=== PATIENT | male | born 1995 | race Caucasian/White ===

== ENCOUNTER → 2018-07-30 12:42 | Outpatient (CLI) | payer OTHER, SELFPAY ==
--- NOTE | 2018-07-30 12:52 | US_ITS ---
US thyroid HISTORY: Thyromegaly ITS.REASON: THYROMEGLY ORDERING PHYSICIAN: DADA Navarro PATIENT AGE: 22 years Comparison: 05/12/2013 FINDINGS: The isthmus is upper normal at 4 mm. There is an isoechoic nodule within the right aspect of the isthmus measuring 5 x 4 mm The right lobe is 4.3 x 1.2 x 1.8 cm. No discrete nodule on the right. The left lobe is 4.1 x 1.1 x 1.8 cm with no obvious nodule. IMPRESSION: 1. Thyroid gland upper limits of normal in size. 2. 5 x 4 mm hypoechoic nodule in the right aspect of the isthmus. Not readily demonstrated previously. Consider 6 month follow-up to confirm short-term stability
== END ==
PROVIDERS: PCP Physician Assistant; Visit Provider Physician Assistant
DX: E01.0 Iodine-deficiency related diffuse (endemic) goiter (principal)
CPT/HCPCS: 76536

== ENCOUNTER 2020-05-21 02:36 | Emergency (ER) | payer BC, OTHER, SELFPAY ==
[2020-05-21 02:37] VITALS: BMI 34.9
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
--- NOTE | 2020-05-21 02:39 | ECG_ITS ---
APPROVED REPORT Exam: Resting ECG HR:71 bpm ECG Measurements Heart Rate 71 AXES CO 166 P 48 QRSd 82 QRS 21 QT 372 T 25 QTc 404 <Conclusion> Normal sinus rhythm with sinus arrhythmia Normal ECG Electronically signed by : Gopi Jones, 05/21/2020 09:01:20
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
[2020-05-21 02:43] VITALS: BP 128/75; PULSE 73; RESP 18; TEMP 36.7; O2SAT 96; BMI 34.9
[2020-05-21 02:56] LABS: Basophils # 0.1 K/mm3 (0-0.2); Basophils % 0.6 % (0.1-2.0); Eosinophils # 0.3 K/mm3 (0.0-0.4); Eosinophils % 3.2 % (0.1-12.0); Hematocrit 46.6 % (42.0-52.0); Hemoglobin 16.1 g/dL (14.1-18.0); Lymphocytes # 2.6 K/mm3 (0.7-4.5); Lymphocytes % 30.5 % (10-50); Mean Corpuscular HGB Conc 34.5 g/dL (31.8-35.4); Mean Corpuscular Volume 92.9 fl (80-94); Mean Platelet Volume 7.8 fl (7.4-10.4); Monocytes # 0.7 K/mm3 (0.1-1.0); Monocytes % 8.4 % (1.7-9.3); Neutrophils # 4.9 K/mm3 (1.8-7.8); Neutrophils % 57.3 % (37.0-80.0); Platelet Count 204 K/mm3 (142-424); Red Blood Count 5.02 M/mm3 (4.60-6.20); Red Cell Distribution Width 12.5 % (11.5-17.5); White Blood Count 8.6 K/mm3 (4.8-10.8)
[2020-05-21 03:06] LABS: Alanine Aminotransferase 24 U/L (12-78); Albumin Level 4.5 g/dl (3.5-5.0); Alkaline Phosphatase 60 U/L (38-126); Anion Gap 14.9 mEq/L (5-15); Aspartate Amino Transferase 29 U/L (17-59); Bilirubin,Direct 0.1 mg/dl (0.0-0.4); Bilirubin,Indirect 0.6 mg/dL (0.0-0.9); Bilirubin,Total 0.7 mg/dl (0.2-1.3); Bilirubin,Unconjugated 0.6 mg/dL (0.0-1.1); Blood Urea Nitrogen 16 mg/dl (9-20); Calcium 9.2 mg/dl (8.4-10.2); Carbon Dioxide 24 mmol/L (22.0-30.0); Chloride 106 mmol/L (98-107); Creatinine Clearance Estimated 208 mL/min (50-200); Estimated Glomerular Filt Rate 118 ml/min (>60); GFR (African American) 143 ML/MIN (>60); Glucose 120 mg/dl (74-100); Potassium 3.9 mmoL/L (3.5-5.1); Sodium 141 mmol/L (136-145); Total Protein,Serum 7.2 g/dl (6.3-8.2)
[2020-05-21 03:08] LABS: Ethyl Alcohol < 10 mg/dl (0-10)
[2020-05-21 03:35] LABS: Troponin I < 0.01 ng/ml (0.00-0.034)
[2020-05-21 03:37] VITALS: BP 108/55; PULSE 67; O2SAT 97
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
[2020-05-21 04:17] VITALS: BP 105/44; PULSE 62; O2SAT 96
[2020-05-21 04:30] VITALS: BP 108/52; PULSE 64; RESP 14; TEMP 36.7; O2SAT 99
== END 2020-05-21 04:32 | disposition home or self-care (01) ==
PROVIDERS: Emergency Provider Emergency Medicine; PCP Family Medicine
DX: S20.219A Contusion of unspecified front wall of thorax, initial encounter (principal); V49.3XXA Car occupant (driver) (passenger) injured in unspecified nontraffic accident, initial encounter; Y92.488 Other paved roadways as the place of occurrence of the external cause
CPT/HCPCS: 70450; 71045; 71275; 72125; 72128; 72131; 72170; 80048; 80076; 84484; 85025; 93005; 96365; 96375; 99284; Q9967

== ENCOUNTER → 2020-07-05 14:00 | Outpatient (CLI) | payer BC, OTHER, SELFPAY ==
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
== END ==
PROVIDERS: PCP Family Medicine; Visit Provider Nurse Practitioner Family
DX: R29.898 Other symptoms and signs involving the musculoskeletal system (principal)
CPT/HCPCS: 73030

== ENCOUNTER → 2020-07-27 15:52 | Outpatient (CLI) | payer BC, SELFPAY ==
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
[2020-07-27 17:21] LABS: Basophils % 0.5 % (0.1-2.0); Eosinophils # 0.2 K/mm3 (0.0-0.4); Eosinophils % 2.6 % (0.1-12.0); Hematocrit 49.1 % (42.0-52.0); Hemoglobin 16.1 g/dL (14.1-18.0); Lymphocytes # 1.7 K/mm3 (0.7-4.5); Lymphocytes % 27.6 % (10-50); Mean Corpuscular HGB Conc 32.8 g/dL (31.8-35.4); Mean Corpuscular Volume 91.6 fl (80-94); Mean Platelet Volume 7.6 fl (7.4-10.4); Monocytes # 0.5 K/mm3 (0.1-1.0); Monocytes % 7.5 % (1.7-9.3); Neutrophils # 3.8 K/mm3 (1.8-7.8); Neutrophils % 61.8 % (37.0-80.0); Platelet Count 227 K/mm3 (142-424); Red Blood Count 5.36 M/mm3 (4.60-6.20); Red Cell Distribution Width 12.3 % (11.5-17.5); White Blood Count 6.1 K/mm3 (4.8-10.8)
[2020-07-29 10:50] LABS: Covid-19 Nasal PCR Sendout Lex Not Detected
== END ==
PROVIDERS: PCP Family Medicine; Visit Provider Physician Assistant
DX: Z03.818 Encounter for observation for suspected exposure to other biological agents ruled out (principal)
CPT/HCPCS: 36415; 71045; 85025; 87275; 87276; U0004

== ENCOUNTER → 2021-05-01 10:24 | Outpatient (CLI) | payer BC, SELFPAY ==
[2021-05-01 10:42] LABS: Adenovirus,PCR Not Detected (NotDetected); Bordetella Pertussis Not Detected (NotDetected); Chlamydophila Pneumoniae, PCR Not Detected (NotDetected); Coronavirus 19, PCR Not Detected (NotDetected); Coronavirus 229E Not Detected (NotDetected); Coronavirus NL63 Not Detected (NotDetected); Coronavirus OC43 Not Detected (NotDetected); Coronovirus HKU1,PCR Not Detected (NotDetected); Human Metapneumovirus Not Detected (NotDetected); Influenza A, PCR Not Detected (NotDetected); Influenza AH1, 2009 Not Detected (NotDetected); Influenza AH1, PCR Not Detected (NotDetected); Influenza AH3,PCR Not Detected (NotDetected); Influenza B, PCR Not Detected (NotDetected); Mycoplasma Pneumoniae, PCR Not Detected (NotDetected); Parainfluenza 1, PCR Not Detected (NotDetected); Parainfluenza 2, PCR Not Detected (NotDetected); Parainfluenza 3, PCR Not Detected (NotDetected); Parainfluenza 4, PCR Not Detected (NotDetected); Respiratory Syncytial Virus Not Detected (NotDetected); Rhinovirus/Enterovirus Not Detected (NotDetected)
[2021-05-01 10:57] LABS: Strep Scrn Group A (Rapid) Negative (Negative)
[2021-05-01 11:02] LABS: Basophils % 0.3 % (0.1-2.0); Eosinophils # 0.1 K/mm3 (0.0-0.4); Eosinophils % 1.4 % (0.1-12.0); Hematocrit 46.2 % (42.0-52.0); Hemoglobin 15.7 g/dL (14.1-18.0); Lymphocytes # 1.9 K/mm3 (0.7-4.5); Mean Corpuscular HGB Conc 33.9 g/dL (31.8-35.4); Mean Corpuscular Hemoglobin 31.5 pg (27.0-31.2); Mean Corpuscular Volume 92.7 fl (80-94); Mean Platelet Volume 7.5 fl (7.4-10.4); Monocytes # 0.4 K/mm3 (0.1-1.0); Monocytes % 5.5 % (1.7-9.3); Neutrophils # 5.1 K/mm3 (1.8-7.8); Neutrophils % 67.7 % (37.0-80.0); Platelet Count 255 K/mm3 (142-424); Red Blood Count 4.98 M/mm3 (4.60-6.20); Red Cell Distribution Width 12.8 % (11.5-17.5); White Blood Count 7.5 K/mm3 (4.8-10.8)
== END ==
PROVIDERS: PCP Family Medicine; Visit Provider Nurse Practitioner
DX: Z20.822 Contact with and (suspected) exposure to COVID-19 (principal); J02.9 Acute pharyngitis, unspecified
CPT/HCPCS: 36415; 85025; 87430; 87581; 87633; 87798

== ENCOUNTER 2021-07-25 12:05 | Emergency (ER) | payer BC, SELFPAY ==
[2021-07-25 12:06] VITALS: BP 144/65; PULSE 88; RESP 16; TEMP 37.7; O2SAT 99; BMI 41.0
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
[2021-07-25 12:30] VITALS: BP 144/65; PULSE 90; O2SAT 96
[2021-07-25 12:39] LABS: Basophils % 0.7 % (0.1-2.0); Eosinophils # 0.1 K/mm3 (0.0-0.4); Eosinophils % 1.5 % (0.1-12.0); Hematocrit 42.7 % (42.0-52.0); Hemoglobin 15.4 g/dL (14.1-18.0); Lymphocytes # 0.9 K/mm3 (0.7-4.5); Lymphocytes % 24.5 % (10-50); Mean Corpuscular HGB Conc 36.1 g/dL (31.8-35.4); Mean Corpuscular Hemoglobin 31.1 pg (27.0-31.2); Mean Corpuscular Volume 86.4 fl (80-94); Monocytes # 0.3 K/mm3 (0.1-1.0); Monocytes % 8.4 % (1.7-9.3); Neutrophils # 2.5 K/mm3 (1.8-7.8); Platelet Count 175 K/mm3 (142-424); Red Blood Count 4.94 M/mm3 (4.60-6.20); Red Cell Distribution Width 12.8 % (11.5-17.5); White Blood Count 3.8 K/mm3 (4.8-10.8)
[2021-07-25 12:54] LABS: Alanine Aminotransferase 34 U/L (12-78); Albumin Level 4.4 g/dl (3.5-5.0); Albumin/Globulin Ratio 1.5 (1.1-1.8); Alkaline Phosphatase 59 U/L (38-126); Anion Gap 9.6 mEq/L (5-15); Aspartate Amino Transferase 42 U/L (17-59); Blood Urea Nitrogen 7 mg/dl (9-20); Calcium 8.6 mg/dl (8.4-10.2); Carbon Dioxide 29 mmol/L (22.0-30.0); Chloride 101 mmol/L (98-107); Creatinine Clearance Estimated 215 mL/min (50-200); Estimated Glomerular Filt Rate 102 ml/min (>60); GFR (African American) 123 ML/MIN (>60); Globulin 2.9 g/dL (1.3-3.2); Glucose 99 mg/dl (74-100); Potassium 3.6 mmoL/L (3.5-5.1); Sodium 136 mmol/L (136-145); Total Protein,Serum 7.3 g/dl (6.3-8.2)
[2021-07-25 13:00] VITALS: BP 127/75; PULSE 81; O2SAT 94
--- NOTE | 2021-07-25 13:09 | PC.NURSE ---
Pt resting. No new needs at this time
--- NOTE | 2021-07-25 13:27 | HMH.EDGENADL ---
ED Disposition Clinical Impression: Vomiting Disposition: Home, Self-Care Condition on Discharge: Fair Instructions: DI for Nausea -- Adult, DI for Nausea -- Child, DI for Diarrhea and Traveler's Diarrhea -- Adult, DI for Diarrhea and Traveler's Diarrhea -- Child Referrals: Jared Pérez MD [Primary Care Provider] - - Critical Care Critical Care Time: No Attestation: On 07/25/21, the high probability of a clinically significant, sudden or life threatening deterioration of the following system(s) required my full and direct attention, intervention and personal management. The time I documented below is in addition to time spent performing reported procedures but includes the following listed in this critical care notation. Medical Decision Making - Medical Records Medical records reviewed: Yes: I reviewed the patient's medical records. - Garth Inquiry Pt receiving controlled substance: No Garth was queried for this patient: No Vital Signs: 07/25/21 12:06 07/25/21 12:30 07/25/21 13:00 Temperature 99.9 F H Temperature Source Oral Pulse Rate 90 81 Pulse Rate [Right] 88 Respiratory Rate 16 Blood Pressure 144/65 H 127/75 Blood Pressure [Right Arm] 144/65 H Blood Pressure Mean [Right Arm] 91 Blood Pressure Source [Right Arm] Automatic Cuff Blood Pressure Position [Right Arm] Sitting 02 Sat by Pulse Oximetry 99 96 94 L Oxygen Delivery Method Room Air - Lab Data Lab Results 07/25/21 12:25: WBC 3.8 L, RBC 4.94, Hgb 15.4, Hct 42.7, MCV 86.4, MCH 31.1, MCHC 36.1 H, RDW 12.8, Plt Count 175, MPV 8.0, Neut % (Auto) 65.0, Lymph % (Auto) 24.5, [place] % (Auto) 8.4, Eos % (Auto) 1.5, Baso % (Auto) 0.7, Neut # (Auto) 2.5, Lymph # (Auto) 0.9, [place] # (Auto) 0.3, Eos # (Auto) 0.1, Baso # (Auto) 0.0 07/25/21 12:25: Sodium 136, Potassium 3.6, Chloride 101, Carbon Dioxide 29, Anion Gap 9.6, BUN 7 L, Creatinine 0.90, Estimated Creat Clear 215, Estimated GFR 102, Est GFR ( Amer) 123, Glucose 99, Calcium 8.6, Total Bilirubin 1.0, AST 42, ALT 34, Alkaline Phosphatase 59, Total Protein 7.3, Albumin 4.4, Globulin 2.9, Albumin/Globulin Ratio 1.5 Result diagrams: 07/25/21 12:25 07/25/21 12:25 Orders (Tests/Meds): ORDERS Category Date Time Status XR chest portable Stat Exams 07/25/21 12:22 Taken Medical Decision Narrative: Patient is a 25 old male with no past medical history presenting to the ED for vomiting blood. Patient is awake, alert, not in acute distress. Patient is medically stable, afebrile. Patient's physical exam is unremarkable, patient has a soft nondistended nontender abdomen. Includes but is not limited to trauma from vomiting ,gastritis, peptic ulcer disease. This a CBC, CMP is performed. Chest x-ray is performed. Patient's lab work is unremarkable, hemoglobin stable. At this point patient is stable for discharge. Patient can with primary care physician as needed. General Adult HPI - General Chief complaint: Nausea/Vomiting/Diarrhea Stated complaint: covid positive, vomiting blood Time Seen by Provider: 07/25/21 13:28 Mode of Arrival: Ambulatory Limitations: No Limitations Description of Symptoms (Recalled from ER Triage Doc. by RN): P:t advises he tested positive for covid on 07/17 and had been doing fairly well with symptoms that included congestion, productive cough, fever, body aches and chills. PT advises this morning he started coughing really hard and vomited and noticed it had some dark red blood tinge in it. - History of Present Illness HPI narrative: Patient is a 25-year-old male with no past medical history presenting to the ED for vomiting blood. Patient states that he is Covid positive and has been sick for approximately a week and a half. Patient states that his symptoms are still persistent patient intermittently gets fevers, myalgias, cough. Patient states that his cough is worsening to the point that he is having to vomit. Patient irby
[2021-07-25 13:57] VITALS: BP 134/87; PULSE 94; RESP 18; TEMP 37.7; O2SAT 94
== END 2021-07-25 13:57 | disposition home or self-care (01) ==
PROVIDERS: Emergency Provider Emergency Medicine; PCP Family Medicine
DX: U07.1 COVID-19 (principal); R05.8 Other specified cough; F17.210 Nicotine dependence, cigarettes, uncomplicated; Z88.0 Allergy status to penicillin
CPT/HCPCS: 71045; 80053; 85025; 99283

== ENCOUNTER → 2021-07-27 14:52 | Outpatient (CLI) | payer BC, SELFPAY ==
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
[2021-07-27 16:32] LABS: Basophils % 0.4 % (0.1-2.0); Eosinophils # 0.1 K/mm3 (0.0-0.4); Eosinophils % 1.8 % (0.1-12.0); Hematocrit 44.4 % (42.0-52.0); Hemoglobin 15.7 g/dL (14.1-18.0); Lymphocytes # 1.8 K/mm3 (0.7-4.5); Lymphocytes % 36.1 % (10-50); Mean Corpuscular HGB Conc 35.4 g/dL (31.8-35.4); Mean Corpuscular Hemoglobin 31.4 pg (27.0-31.2); Mean Corpuscular Volume 88.6 fl (80-94); Mean Platelet Volume 7.8 fl (7.4-10.4); Monocytes # 0.4 K/mm3 (0.1-1.0); Monocytes % 7.9 % (1.7-9.3); Neutrophils # 2.7 K/mm3 (1.8-7.8); Neutrophils % 53.7 % (37.0-80.0); Platelet Count 215 K/mm3 (142-424); Red Blood Count 5.01 M/mm3 (4.60-6.20); Red Cell Distribution Width 12.2 % (11.5-17.5); White Blood Count 5.1 K/mm3 (4.8-10.8)
== END ==
PROVIDERS: PCP Family Medicine; Visit Provider Nurse Practitioner
DX: Z20.822 Contact with and (suspected) exposure to COVID-19 (principal)
CPT/HCPCS: 36415; 71045; 85025

== ENCOUNTER 2022-09-28 12:43 | Emergency (ER) | payer BC, SELFPAY ==
[2022-09-28 14:00] VITALS: BP 128/80; PULSE 78; RESP 21; TEMP 36.8; O2SAT 97; BMI 39.5
--- NOTE | 2022-09-28 14:03 | EXP.UTC ---
Discharge Plan Disposition Patient Disposition: Home, Self-Care Condition: Good Prescriptions Prescriptions: New azithromycin [Zithromax] 250 mg tablet 250 mg PO UD DOSE PK Qty: 6 0RF Rx Instructions: Take two (2) tablets today, then one (1) tablet days #2 thru #5 benzonatate [benzonatate] 100 mg capsule 100 mg PO TIDP PRN (Reason: Cough) Qty: 30 0RF methylprednisolone 4 mg Tablets,Dose Pack 4 mg PO DIRECTED Qty: 21 0RF No Action clindamycin HCl 300 mg capsule 300 mg PO TID Label Comments: TAKE 1 CAPSULE BY MOUTH THREE TIMES DAILY Referrals Follow up/Referrals: Jared Pérez MD [Primary Care Provider] - See instructions Activity Restrictions/Add. Instructions Additional Instructions/Restrictions: Drink plenty of fluids. Take tylenol or ibuprofen for pain or fever. Take the medications as directed. Follow up with your regular doctor. GO TO THE ER FOR ANY WORSENING SYMPTOMS Clinical Impressions Clinical Impression: Sinusitis Instructions Patient Instructions: Sinusitis, DI for Sinusitis Discharge ED Provider: Shayan Prajapati [facility] General Stated complaint: head congestion Time Seen by Provider: 09/28/22 14:03 History of Present Illness Provider Complaint: He states that for the past 1 week he has had sinus congestion, sore throat, chills, and malaise. Related Data Home Medications Medication Instructions Recorded Confirmed clindamycin HCl 300 mg capsule 300 mg PO TID TOOTH INFECTION 09/28/22 09/28/22 Previous Rx's Medication Instructions Recorded azithromycin 250 mg tablet 250 mg PO UD DOSE PK #6 tabs 09/28/22 (Zithromax) benzonatate 100 mg capsule 100 mg PO TIDP PRN Cough #30 caps 09/28/22 methylprednisolone 4 mg tablets in 4 mg PO DIRECTED #21 tabs 09/28/22 a dose pack Allergies Allergy/AdvReac Type Severity Reaction Status Date / Time codeine [CODEINE] Allergy Mild ITCHING Verified 07/25/21 12:37 Penicillins [PENICILLINS] Allergy Unknown Verified 07/25/21 12:37 [facility] Disclaimer: The information contained in this section may have been updated after the patient was seen, as this information can be updated by other users. Medical History Asthma Surgical History History of appendectomy Social History Smoking Status: Current every day smoker tobacco type: cigarettes packs per day: 1 alcohol intake: never current occupational status: employed Travel in the last 8 weeks: None household members: family housing: house ROS Obtained: Yes All systems reviewed & no additional complaints except as documented Constitutional Constitutional: Reports poor appetite Eyes Eyes: Reports system reviewed and no additional complaints, except as documented ENT Ears, Nose, Mouth, and Throat: Reports as per HPI Cardiovascular Cardiovascular: Reports system reviewed and no additional complaints, except as documented and Denies chest pain Respiratory Respiratory: Denies shortness of breath, Denies chest congestion, Reports cough, Denies stridor and Denies wheezing Gastrointestinal Gastrointestingal: Reports system reviewed and no additional complaints, except as documented; Denies abdominal pain, diarrhea or vomiting Musculoskeletal Musculoskeletal: Reports system reviewed and no additional complaints, except as documented and Denies arthralgias Integumentary/Breasts Skin/Breast: Reports system reviewed and no additional complaints, except as documented and Denies rash Neurologic Neurologic: Denies paresthesias Allergic/Immunologic Allergic/Immunologic: Denies wheezing Physical Exam General General appearance: alert and in no apparent distress Eye Eye exam: Present normal appearance, PERRL and EOMI ENT ENT exam: Present mucous membranes moist and normal e
[2022-09-28 14:39] VITALS: BP 128/80; PULSE 78; RESP 21; TEMP 36.8; O2SAT 97
== END 2022-09-28 14:44 | disposition home or self-care (01) ==
PROVIDERS: Emergency Provider Nurse Practitioner Family; PCP Family Medicine
DX: J32.9 Chronic sinusitis, unspecified (principal)
CPT/HCPCS: 99212; 99213; G0463

== ENCOUNTER 2023-04-10 17:32 | Emergency (ER) | payer BC, SELFPAY ==
[2023-04-10 18:10] VITALS: BP 148/80; PULSE 85; RESP 18; TEMP 36.8; O2SAT 98; BMI 27.3
[2023-04-10 18:28] VITALS: BP 148/80; PULSE 85; RESP 18; TEMP 36.8; O2SAT 98
--- NOTE | 2023-04-10 18:33 | EXP.UTC ---
Discharge Plan Disposition Patient Disposition: Home, Self-Care Condition: Good Prescriptions Prescriptions: New methylprednisolone [Medrol ([facility])] 4 mg tablets,dose pack See Rx Instructions .Route .COMPLEX 6 Days Qty: 21 0RF Rx Instructions: taper pack; Referrals Follow up/Referrals: Jared Pérez MD [Primary Care Provider] - See instructions Activity Restrictions/Add. Instructions Additional Instructions/Restrictions: *Ibuprofen julieta 6 hours with meal as needed for pain/inflammation *Remember you had a Toradol shot in the clinic today, which is similar to Motrin *Not additional anti-inflammatory like motrin, aleve, advil with the above amount of ibuprofen. You can still take Tylenol every 4 hours as needed if you need something else for pain *Ice 20 minutes every 2 hours for the first 48 hours after the initial injury followed by moist heat every 20 minutes 3-4 times a day to affected area Start oral steriods tomorrow *Keep this area active, no movement leads to more stiffness, However take it easy and avoid heavy lifting pushing or pulling *Follow up with you family doctor if no improvement for further treatment Clinical Impressions Clinical Impression: Low back pain Qualifiers: Chronicity: unspecified Back pain laterality: right Sciatica presence: with sciatica Sciatica laterality: sciatica of right side Qualified Code(s): M54.41 - Lumbago with sciatica, right side Instructions Patient Instructions: Sciatica, DI for Sciatica, DI for Back Pain With Sciatica Discharge ED Provider: Amy Munoz [facility] General Stated complaint: back and leg pain Mode of Arrival: Ambulatory Source of Information: Patient Limitations: No Limitations Time Seen by Provider: 04/10/23 18:34 Description of Symptoms (Recalled from Triage Doc. by RN): PATIENT C/O LOWER BACK PAIN THAT RADIATES DOWN LEG HEENT Symptoms (Recalled from RN notes): No Resp Symptoms (Recalled from RN notes): No Skin Symptoms (Recalled from RN notes): No MS Symptoms (Recalled from RN notes): Yes Functional Status (Recalled from RN notes): WNL History of Present Illness Provider Complaint: Patient state that he has been having pain in his right lower back area that radiates into his right hip and upper leg States that he has had sciatica before and feels like it did then Denies known injury Related Data Previous Rx's Medication Instructions Recorded methylprednisolone 4 mg tablets in See Rx Instructions .Route 04/10/23 a dose pack (Medrol ([facility])) .COMPLEX 6 days #21 tabs Allergies Allergy/AdvReac Type Severity Reaction Status Date / Time codeine [CODEINE] Allergy Mild ITCHING Verified 07/25/21 12:37 Penicillins [PENICILLINS] Allergy Unknown Verified 07/25/21 12:37 Worker's Comp Is this a Worker's Comp case?: No [facility] Disclaimer: The information contained in this section may have been updated after the patient was seen, as this information can be updated by other users. Medical History Asthma Surgical History History of appendectomy Social History Smoking Status: Current every day smoker tobacco type: cigarettes packs per day: 1 alcohol intake: never current occupational status: employed Travel in the last 8 weeks: None household members: family housing: house ROS Obtained: Yes All systems reviewed & no additional complaints except as documented and Yes Systems reviewed as appropriate & no additional complaints except as documented Constitutional Constitutional: Reports system reviewed and no additional complaints, except as documented and Reports as per HPI ENT Ears, Nose, Mouth, and Throat: Reports system reviewed and no additional complaints, except as documented and Reports as per HPI Cardiovascular Cardiovascular: Reports system revie
== END 2023-04-10 19:15 | disposition home or self-care (01) ==
PROVIDERS: Emergency Provider Nurse Practitioner; PCP Family Medicine
DX: M54.41 Lumbago with sciatica, right side (principal); F17.210 Nicotine dependence, cigarettes, uncomplicated; J45.909 Unspecified asthma, uncomplicated
CPT/HCPCS: 96372; 99212; 99214; G0463

== ENCOUNTER 2023-05-18 13:48 | Emergency (ER) | payer BC, SELFPAY ==
[2023-05-18 14:05] VITALS: BP 118/88; PULSE 94; RESP 21; TEMP 36.6; O2SAT 95; BMI 39.4
--- NOTE | 2023-05-18 14:34 | EXP.UTC ---
Discharge Plan Disposition Patient Disposition: Home, Self-Care Condition: Good Prescriptions Prescriptions: New azithromycin [Zithromax Z-[facility]] 250 mg tablet See Rx Instructions .ROUTE .COMPLEX 5 Days Qty: 6 0RF Rx Instructions: For 250 mg dose pack: take 500 mg today (day 1), then 250 mg for 4 days (days 2-5) methylprednisolone [Medrol ([facility])] 4 mg tablets,dose pack See Rx Instructions .Route .COMPLEX 6 Days Qty: 21 0RF Rx Instructions: taper pack; tprgikvsrntxyag-nwkgoacoo-VO [Bromfed DM] 2-30-10 mg/5 mL Syrup 10 ml PO Q4H PRN (Reason: Cough) Qty: 240 0RF ondansetron 4 mg tablet,disintegrating 4 mg PO Q8H PRN (Reason: nausea and vomiting) Qty: 10 0RF guaifenesin [Mucinex] 600 mg tablet extended release 12hr 600 - 1,200 mg PO BID PRN (Reason: cough) Qty: 20 0RF albuterol sulfate [Proventil HFA] 90 mcg/actuation HFA aerosol inhaler 1 - 2 inh inhalation Q6H PRN (Reason: shortness of breath or wheezing) Qty: 8.5 0RF No Action methylprednisolone [Medrol ([facility])] 4 mg tablets,dose pack See Rx Instructions .Route .COMPLEX 6 Days Qty: 21 0RF Rx Instructions: taper pack; Referrals Follow up/Referrals: Jared Pérez MD [Primary Care Provider] - See instructions Activity Restrictions/Add. Instructions Additional Instructions/Restrictions: Start antibiotic today. Be sure to complete entire prescription even if feeling better Monitor temp. Tylenol every 4 hours as needed and / or ibuprofen every 6 hours as needed ( As long as your primary care physician has told you that it ok to take both. For fever/aches/pains ER if no less than 101 despite Tylenol or Motrin Humidifier/vaporizer or hot steamy shower Inhaler every 4-6 hours as needed like we discussed. If unsure how to use it, ask pharmacist to demonstrate how. Should help open airways and improve cough, wheezing, and shortness of breath Mucinex during the day for your cough and cough suppressant only at night. Be sure to drink lots of water. * Take at night Bromfed as it may cause drowsiness.and help you rest Know how it effects you before driving, caring for small child, Not other antihistamines/allergy medications while taking bromfed *Start steroid today. Helps with inflammation therefore, cough and wheezing. Follow directions on the package. Reviewed side effects. Patient reports taking them before. Follow up IMMEDIATELY for new or worsening of symptoms OR no noticeable improvement over the next 48-72 hours. 911 immediately for any life threatening symptoms such as chest pain or difficulty breathing Clinical Impressions Clinical Impression: Bronchitis Sinusitis Qualifiers: Sinusitis location: unspecified location Chronicity: unspecified Qualified Code(s): J32.9 - Chronic sinusitis, unspecified Instructions Patient Instructions: DI for Sinusitis, Acute Bronchitis Discharge ED Provider: Amy Munoz [facility] General Stated complaint: chest congestion, vomiting Mode of Arrival: Ambulatory Source of Information: Patient Limitations: No Limitations Time Seen by Provider: 05/18/23 14:34 Description of Symptoms (Recalled from Triage Doc. by RN): PATIENT C/O CONGESTION, COUGH AND VOMITING X 3 DAYS HEENT Symptoms (Recalled from RN notes): Yes Resp Symptoms (Recalled from RN notes): Yes Skin Symptoms (Recalled from RN notes): No MS Symptoms (Recalled from RN notes): No Functional Status (Recalled from RN notes): WNL History of Present Illness Provider Complaint: Patient states that he has been having sinus congestion and pressure for about a week but for the last 3-4 days feels like it is draining in the back of his throat making him cough at times until he vomits States that today the sinus congestion was worse so he came in to see if he could get something to help Related Data Previous Rx's Medication Instructions Recorded methylprednisolone 4 mg tablets in S
[2023-05-18 15:00] VITALS: BP 118/88; PULSE 94; RESP 21; TEMP 36.6; O2SAT 95
== END 2023-05-18 15:02 | disposition home or self-care (01) ==
PROVIDERS: Emergency Provider Nurse Practitioner; PCP Family Medicine
DX: J32.9 Chronic sinusitis, unspecified; R11.10 Vomiting, unspecified; F17.210 Nicotine dependence, cigarettes, uncomplicated; J45.901 Unspecified asthma with (acute) exacerbation
CPT/HCPCS: 99212; 99214; G0463

== ENCOUNTER 2024-03-25 16:08 | Emergency (ER) | payer BC, SELFPAY ==
--- NOTE | 2024-03-25 16:19 | ECG_ITS ---
APPROVED REPORT Exam: Resting ECG HR:76 bpm ECG Measurements Heart Rate 76 AXES OH 180 P 67 QRSd 110 QRS 67 QT 366 T 24 QTc 397 Conclusion SINUS RHYTHM NORMAL ECG Electronically signed by : VIANNEY MESSINA, 03/25/2024 23:32:03
[2024-03-25 16:25] VITALS: BP 125/84; PULSE 78; RESP 18; TEMP 36.9; O2SAT 97; BMI 38.3
[2024-03-25 16:30] VITALS: BP 126/64; PULSE 87; O2SAT 95
--- NOTE | 2024-03-25 16:33 | XR_ITS ---
PROCEDURE INFORMATION: Exam: XR Chest Exam date and time: 03/25/2024 4:36 PM Age: 28 years old Clinical indication: Cough; Additional info: XR TECHNIQUE: Imaging protocol: Radiologic exam of the chest. Views: 2 views. COMPARISON: CR XR CHEST PORTABLE 07/27/2021 3:33 PM FINDINGS: Lungs: No evidence of acute pulmonary disease or infiltrates Pleural spaces: No large effusion or pneumothorax. Heart/Mediastinum: Stable cardiac and mediastinal contours. Bones/joints: No evidence of acute osseous abnormalities within the visualized portions of the thoracic spine and ribs. Osseous structures appear appropriate for patient age. IMPRESSION: No dense parenchymal consolidation, pleural effusion, or pneumothorax.
--- NOTE | 2024-03-25 17:44 | PC.NURSE ---
Rounded on pt. No needs or complaints voiced at this time. Call light within reach.
[2024-03-25 18:00] VITALS: BP 129/73; PULSE 78; RESP 18; TEMP 36.9; O2SAT 94
--- NOTE | 2024-03-25 19:06 | HMH.EDGENADL ---
Discharge Plan Disposition Patient Disposition: Home, Self-Care Condition: Good Prescriptions Prescriptions: New iblqvuiheewirsd-okuhdzdsz-TJ [Bromfed DM] 2-30-10 mg/5 mL syrup 5 ml PO Q6H PRN (Reason: cold symptoms) Qty: 118 0RF No Action methylprednisolone [Medrol ([facility])] 4 mg tablets,dose pack See Rx Instructions .Route .COMPLEX 6 Days Qty: 21 0RF Rx Instructions: taper pack; azithromycin [Zithromax Z-[facility]] 250 mg tablet See Rx Instructions .ROUTE .COMPLEX 5 Days Qty: 6 0RF Rx Instructions: For 250 mg dose pack: take 500 mg today (day 1), then 250 mg for 4 days (days 2-5) methylprednisolone [Medrol ([facility])] 4 mg tablets,dose pack See Rx Instructions .Route .COMPLEX 6 Days Qty: 21 0RF Rx Instructions: taper pack; hefkbpaehwiasny-tvphpglrm-DT [Bromfed DM] 2-30-10 mg/5 mL Syrup 10 ml PO Q4H PRN (Reason: Cough) Qty: 240 0RF ondansetron 4 mg tablet,disintegrating 4 mg PO Q8H PRN (Reason: nausea and vomiting) Qty: 10 0RF guaifenesin [Mucinex] 600 mg tablet extended release 12hr 600 - 1,200 mg PO BID PRN (Reason: cough) Qty: 20 0RF albuterol sulfate [Proventil HFA] 90 mcg/actuation HFA aerosol inhaler 1 - 2 inh inhalation Q6H PRN (Reason: shortness of breath or wheezing) Qty: 8.5 0RF Referrals Follow up/Referrals: Jared Pérez MD [Primary Care Provider] - See instructions Activity Restrictions/Add. Instructions Additional Instructions/Restrictions: You were evaluated in the emergency department today. Please brass pickler your prescription and use it as needed for cough. Make sure that you stay hydrated. Take Tylenol and ibuprofen at home as needed for pain and/or fever. Symptoms should resolve in about a week, but cough may linger for 4 to 6 weeks. Follow-up closely with your primary care provider. Return to the emergency department for new or worsening symptoms. Clinical Impressions Clinical Impression: Viral pneumonia Instructions Patient Instructions: DI for Cough -- Adult Print Language Print Language: Uzbek Discharge ED Provider: Kathya Salinas General Adult HPI General Chief complaint: Upper Respiratory Infection Stated complaint: cough, exp- pneu Time Seen by Provider: 03/25/24 16:24 Mode of Arrival: Ambulatory Source of Information: Patient Limitations: No Limitations Description of Symptoms (Recalled from ER Triage Doc. by RN): Pt ambulatory to ED with cc of congestion and chest tightness x 2 days. Pt states his son has pneumonia. History of Present Illness HPI narrative: This patient is a 28-year-old male who denies significant past medical history presenting to the emergency department for evaluation with concern for 2 days of cough and chest congestion. He notes that his son at home has pneumonia. He states he wanted to be evaluated to see if he has pneumonia as well. No other concerns noted. Related Data Previous Rx's ?Medication ?Instructions ?Recorded methylprednisolone 4 mg tablets in See Rx Instructions .Route 04/10/23 a dose pack (Medrol ([facility])) .COMPLEX 6 days #21 tabs albuterol sulfate 90 mcg/actuation 1 - 2 inh inhalation Q6H PRN 05/18/23 aerosol inhaler (Proventil HFA) shortness of breath or wheezing #8.5 grams azithromycin 250 mg tablet See Rx Instructions PO .COMPLEX 5 05/18/23 (Zithromax Z-[facility]) days #6 tabs yudkyidbaprhshn-aujzjzwofnvhkuy-MR 10 ml PO Q4H PRN Cough #240 mL 05/18/23 2 mg-30 mg-10 mg/5 mL oral syrup (Bromfed DM) guaifenesin 600 mg tablet, 600 - 1,200 mg (1 - 2 x 600 mg) PO 05/18/23 extended release 12 hr (Mucinex) BID PRN cough #20 tabs methylprednisolone 4 mg tablets in See Rx Instructions .Route 05/18/23 a dose pack (Medrol ([facility])) .COMPLEX 6 days #21 tabs ondansetron 4 mg disintegrating 4 mg PO Q8H PRN nausea and 05/18/23 tablet vomiting #10 tabs wpqtszalwgmffry-opkfrkgjbmvnhhj-EA 5 ml PO Q6H PRN cold symptoms #118 03/25/24 2 mg-30 mg-10 mg/5 mL oral syrup mL (Bromfed DM) Allergies Allergy/AdvReac Type Severity Reaction Status Date / Time codeine [CODEINE] Allergy Mild ITCHING Verified 07/25/21 12:37 Penicillins [PENICILLINS] Allergy Unknown Verified 07/25/21 12:37 [facility] Disclaimer: The information contained in this section may have been updated after the patient was seen, as this information can be updated by other users. Medical History Asthma Surgical History History of appendectomy Social History Smoking Status: Current every day smoker tobacco type: cigarettes packs per day: 1 alcohol intake: never current occupational status: employed Travel in the last 8 weeks: None household members: family housing: house ROS Obtained: Yes All systems reviewed & no additional complaints except as documented Physical Exam General General appearance: alert and in no apparent distress Head Head exam: atraumatic and normocephalic Eye Eye exam: Present normal appearance, PERRL and EOMI ENT ENT exam: Present normal exam, normal oropharynx, mucous membranes moist and normal external ear exam Neck Neck exam: Present normal inspection, full ROM and trachea midline; Absent tenderness Chest Chest inspection: Present normal inspection and symmetric chest wall rise; Absent tenderness Respiratory Respiratory exam: Present normal lung sounds bilaterally; Absent respiratory distress, wheezes, stridor or accessory muscle use Cardiovascular Cardiovascular exam: Present regular rate and normal rhythm Abdominal Exam Abdominal exam: Present soft; Absent distention, tenderness or guarding Extremities Exam Extremities exam: Present normal inspection, full ROM and normal capillary refill; Absent tenderness or edema Back Exam Back exam: Present normal inspection and full ROM; Absent tenderness Neurological Exam Neurological exam: Present alert, oriented X3, CN II-XII intact and normal gait; Absent motor sensory deficit Psychiatric Psychiatric exam: Present normal affect and normal mood Skin Skin exam: Present warm and dry Medical Decision Making Medical Records Medical records reviewed: Yes I reviewed the patient's medical records. Garth Inquiry Pt receiving controlled substance: No Vital Signs: 03/25/24 16:25 03/25/24 16:30 03/25/24 18:00 Temperature 98.4 F 98.4 F Temperature Source Oral Oral Pulse Rate 87 78 Pulse Rate [Left Radial] 78 Respiratory Rate 18 18 Blood Pressure 126/64 129/73 Blood Pressure [Right Arm] 125/84 Blood Pressure Mean [Right Arm] 97 Blood Pressure Source Automatic Cuff Blood Pressure Source [Right Arm] Automatic Cuff Blood Pressure Position Sitting Blood Pressure Position [Right Arm] Sitting 02 Sat by Pulse Oximetry 97 95 Oxygen Delivery Method Room Air Room Air Room Air Lab Data Lab results reviewed: Yes I reviewed the patient's lab results. Orders (Tests/Meds): ORDERS Category Date Time Status CXR 2 view (NOT portable) [XR chest 2V] Stat Exams 03/25/24 16:33 Completed ECG Data Tracing #1: I reviewed this ECG and interpreted as documented below: Normal sinus rhythm with a ventricular rate of [address] changes concerning for ischemia. Normal axis and intervals. ECG initial impression date: 03/25/24 ECG initial impression time: 16:21 Medical Decision Narrative: In summary, this patient is a 28-year-old male presenting to the Emergency Department for evaluation of cough and chest congestion for 2 days. Differential diagnoses considered include but are not limited to viral syndrome, pneumonia, bronchitis, respiratory failure. Ruling out the most morbid conditions drove assessment. On exam, the patient is very well-appearing. Lungs are clear to auscultation bilaterally, and cardiac exam is normal. Vitals are normal on cardiac telemetry. EKG obtained is normal. Workup included view chest x-ray. Patient declines need for viral swab.. I independently interpreted x-ray prior to the radiologist read and noted no acute focal consolidation, pneumothorax, pulmonary edema. Please see their read for final interpretation. At this time, I feel patient likely has viral upper respiratory infection given the short duration of symptoms as well as lack of focal consolidation on x-ray. I advised that I recommended discharge home with supportive management. He was given prescription for Bromfed. He was given strict return precautions and instructions for close outpatient follow-up. He was discharged in stable condition. Critical Care Critical Care Time Critical Care Time: No
== END 2024-03-25 18:02 | disposition home or self-care (01) ==
PROVIDERS: Emergency Provider Emergency Medicine; PCP Family Medicine
DX: J18.8 Other pneumonia, unspecified organism (principal); R05.9 Cough, unspecified; B34.9 Viral infection, unspecified; F17.210 Nicotine dependence, cigarettes, uncomplicated; J45.909 Unspecified asthma, uncomplicated
CPT/HCPCS: 71046; 93005; 99283

== ENCOUNTER 2024-05-11 15:27 | Emergency (ER) | payer BC, SELFPAY ==
[2024-05-11 15:47] VITALS: BP 137/78; PULSE 76; RESP 16; TEMP 37.2; O2SAT 97; BMI 39.5
--- NOTE | 2024-05-11 15:50 | ED_ITS ---
Discharge Plan Disposition Patient Disposition: Home, Self-Care Condition: Good Prescriptions Prescriptions: New ondansetron 4 mg tablet,disintegrating 4 mg PO Q8H PRN (Reason: nausea and vomiting) Qty: 10 0RF No Action methylprednisolone [Medrol ([facility])] 4 mg tablets,dose pack See Rx Instructions .Route .COMPLEX 6 Days Qty: 21 0RF Rx Instructions: taper pack; bmqywwhjwwxvols-dnbhpcgjg-NV [Bromfed DM] 2-30-10 mg/5 mL syrup 5 ml PO Q6H PRN (Reason: cold symptoms) Qty: 118 0RF azithromycin [Zithromax Z-Wesley] 250 mg tablet See Rx Instructions .ROUTE .COMPLEX 5 Days Qty: 6 0RF Rx Instructions: For 250 mg dose pack: take 500 mg today (day 1), then 250 mg for 4 days (days 2-5) methylprednisolone [Medrol ([facility])] 4 mg tablets,dose pack See Rx Instructions .Route .COMPLEX 6 Days Qty: 21 0RF Rx Instructions: taper pack; cxcjvbcdqclulvz-yqjlulfiy-JS [Bromfed DM] 2-30-10 mg/5 mL Syrup 10 ml PO Q4H PRN (Reason: Cough) Qty: 240 0RF ondansetron 4 mg tablet,disintegrating 4 mg PO Q8H PRN (Reason: nausea and vomiting) Qty: 10 0RF guaifenesin [Mucinex] 600 mg tablet extended release 12hr 600 - 1,200 mg PO BID PRN (Reason: cough) Qty: 20 0RF albuterol sulfate [Proventil HFA] 90 mcg/actuation HFA aerosol inhaler 1 - 2 inh inhalation Q6H PRN (Reason: shortness of breath or wheezing) Qty: 8.5 0RF Referrals Follow up/Referrals: Jared Pérez MD [Primary Care Provider] - See instructions Activity Restrictions/Add. Instructions Additional Instructions/Restrictions: *Monitor Temp, Over the counter Motrin or Tylenol as directed/as needed Tylenol every 4 hours and Motrin every 6 hours (as long as your family doctor has told you that you can take it) for fever or pain. and straight to ER if unable to lower temp less than 101.0 after medication given *Warm salt water gargles may help to soothe the throat *Throat Lozenges? *Warm fluids like tea with honey may help to soothe the throat? *Sleep elevated *Humidifier/Vaporizer *Flonase 2 sprays in each nostril daily but be aware that it may take 2-3 days before you notice improvement *Bromfed may cause drowsiness. Know how it effects you (your child) before dr diaz, caring for small child, or sending your child to school. Not other antihistamines/allergy medications while taking bromfed Your throat swab was sent for culture. Those results are typically sent to your primary care. Be sure to follow up in 2-3 days with your family doctor/primary care physician if no improvement so they can review those result and treat if necessary. If you don?t have a primary care doctor, I recommend you get one but in the mean time, you will have to return to a walk in clinic Follow up IMMEDIATELY for new or worsening symptoms or no Noticeable improvement over the next 48-72 hours. 911 for difficulty breathing or swallowing You were tested for today for Upper Respiratory Panel with COVID19 your test result should be back in the next 24 hours, you may check for your results on the [facility] Med Access Health Portal Clinical Impressions Clinical Impression: Viral syndrome Stand Alone Forms Stand Alone Forms: Work/School Release Instructions Patient Instructions: Nausea and Vomiting-Adult, DI for Viral Syndrome Print Language Print Language: Albanian Discharge ED Provider: Amy Munoz [facility] [place] General Stated complaint: Fever,cough,ALEJANDRO,vomiting Mode of Arrival: Ambulatory Source of Information: Patient Limitations: No Limitations Time Seen by Provider: 05/11/24 15:50 Description of Symptoms (Recalled from Triage Doc. by RN): Reports sore thraot, fever, vomiting, headache and body aches. HEENT Symptoms (Recalled from RN notes): Yes Resp Symptoms (Recalled from RN notes): No Skin Symptoms (Recalled from RN notes): No MS Symptoms (Recalled from RN notes): No Functional Status (Recalled from RN notes): wnl History of Present Illness Provider Complaint: Patient states he hasnt been feeling well the last couple of days States he has been having sore throat, fever, body aches, headache and runny nose States today he was still not feeling any better so he came in to get checked Related Data Previous Rx's ?Medication ?Instructions ?Recorded methylprednisolone 4 mg tablets in See Rx Instructions .Route 04/10/23 a dose pack (Medrol ([facility])) .COMPLEX 6 days #21 tabs albuterol sulfate 90 mcg/actuation 1 - 2 inh inhalation Q6H PRN 05/18/23 aerosol inhaler (Proventil HFA) shortness of breath or wheezing #8.5 grams azithromycin 250 mg tablet See Rx Instructions PO .COMPLEX 5 05/18/23 (Zithromax Z-Wesley) days #6 tabs etmswiisfkudzwh-uwzlsxascbqxhlc-KK 10 ml PO Q4H PRN Cough #240 mL 05/18/23 2 mg-30 mg-10 mg/5 mL oral syrup (Bromfed DM) guaifenesin 600 mg tablet, 600 - 1,200 mg (1 - 2 x 600 mg) PO 05/18/23 extended release 12 hr (Mucinex) BID PRN cough #20 tabs methylprednisolone 4 mg tablets in See Rx Instructions .Route 05/18/23 a dose pack (Medrol ([facility])) .COMPLEX 6 days #21 tabs ondansetron 4 mg disintegrating 4 mg PO Q8H PRN nausea and 05/18/23 tablet vomiting #10 tabs slrlazqaphjgeqb-mmlfkhrmatuimhl-MV 5 ml PO Q6H PRN cold symptoms #118 03/25/24 2 mg-30 mg-10 mg/5 mL oral syrup mL (Bromfed DM) ondansetron 4 mg disintegrating 4 mg PO Q8H PRN nausea and 05/11/24 tablet vomiting #10 tabs Allergies Allergy/AdvReac Type Severity Reaction Status Date / Time codeine [CODEINE] Allergy Mild ITCHING Verified 07/25/21 12:37 Penicillins [PENICILLINS] Allergy Unknown Verified 07/25/21 12:37 Worker's Comp Is this a Worker's Comp case?: No [facility] Disclaimer: The information contained in this section may have been updated after the patient was seen, as this information can be updated by other users. Medical History Asthma Surgical History History of appendectomy Social History Smoking Status: Current every day smoker tobacco type: cigarettes packs per day: 1 alcohol intake: never current occupational status: employed Travel in the last 8 weeks: None household members: family housing: house ROS Obtained: Yes All systems reviewed & no additional complaints except as documented and Yes Systems reviewed as appropriate & no additional complaints except as documented Constitutional Constitutional: Reports system reviewed and no additional complaints, except as documented, Reports as per HPI, Reports body ache, Reports chills, Reports fever(s) and Reports headache(s) ENT Ears, Nose, Mouth, and Throat: Reports system reviewed and no additional comp laints, except as documented, Reports as per HPI, Reports headache(s), Reports nasal congestion and Reports sore throat Cardiovascular Cardiovascular: Reports system reviewed and no additional complaints, except as documented and Reports as per HPI Respiratory Respiratory: Reports system reviewed and no additional complaints, except as documented, Reports as per HPI and Reports cough Gastrointestinal Gastrointestingal: Reports system reviewed and no additional complaints, except as documented, as per HPI, nausea and vomiting; Denies abdominal pain Neurologic Neurologic: Reports headache(s) Physical Exam General General appearance: alert and in no apparent distress ENT ENT exam: Present mucous membranes moist Expanded ENT Exam Nose exam: Absent sinus tenderness Throat exam: Present tonsillar erythema Respiratory Respiratory exam: Present normal lung sounds bilaterally; Absent respiratory distress or wheezes Cardiovascular Cardiovascular exam: Present regular rate, normal rhythm and normal heart sounds Abdominal Exam Abdominal exam: Present soft and normal bowel sounds; Absent distention or tenderness Neurological Exam Neurological exam: Present alert, oriented X3 and normal gait Medical Decision Making Medical Records Screening: Per USPSTF and CDC recommendations, given the prevalence of disease in our region, it is our hospital?s policy to screen for HIV and viral Hepatitis for all patients aged 18 and over and those with ongoing risk factors. Garth Inquiry Pt receiving controlled substance: No Garth was queried for this patient: No Vital Signs: 05/11/24 15:47 Temperature 98.9 F Temperature Source Oral Pulse Rate [Radial] 76 Respiratory Rate 16 Blood Pressure [Right Arm] 137/78 Blood Pressure Mean [Right Arm] 97 Blood Pressure Source [Right Arm] Automatic Cuff Blood Pressure Position [Right Arm] Sitting 02 Sat by Pulse Oximetry 97 Oxygen Delivery Method Room Air Lab Data Lab results reviewed: Yes I reviewed the patient's lab results.
[2024-05-11 16:17] VITALS: BP 137/78; PULSE 76; RESP 16; TEMP 37.2; O2SAT 97
[2024-05-11 16:21] LABS: Coronavirus 19, PCR Not Detected (NotDetected); Influenza A, PCR Not Detected (NotDetected); Influenza B, PCR Not Detected (NotDetected)
== END 2024-05-11 16:18 | disposition home or self-care (01) ==
PROVIDERS: Emergency Provider Nurse Practitioner; PCP Family Medicine
DX: R51.9 Headache, unspecified (principal); R50.9 Fever, unspecified; R07.0 Pain in throat; R11.2 Nausea with vomiting, unspecified; B34.9 Viral infection, unspecified
CPT/HCPCS: 87636; 87880; 99212; 99214; G0463

== ENCOUNTER 2024-08-15 11:52 | Emergency (ER) | payer BC, SELFPAY ==
[2024-08-15 13:29] VITALS: BP 131/70; PULSE 94; RESP 18; TEMP 36.8; O2SAT 98; BMI 40.4
[2024-08-15 13:39] LABS: UTC Influenza A Antigen Positive (Negative); UTC Influenza B Antigen Negative (Negative)
--- NOTE | 2024-08-15 13:54 | EXP.UTC ---
Discharge Plan Disposition Patient Disposition: Home, Self-Care Condition: Good Prescriptions Prescriptions: New oseltamivir [Tamiflu] 75 mg capsule 75 mg PO BID 5 Days Qty: 10 0RF clotrimazole 1 % cream 1 applic topical BID 28 Days Qty: 15 2RF ibuprofen [IBU] 800 mg tablet 800 mg PO Q8HP PRN (Reason: Moderate Pain) Qty: 30 0RF wnbbtwmpikeflen-ttmafsdww-AX [Bromfed DM] 2-30-10 mg/5 mL Syrup 5 ml PO Q6H PRN (Reason: Cough) Qty: 240 0RF Referrals Follow up/Referrals: Jared Pérez MD [Primary Care Provider] - See instructions Activity Restrictions/Add. Instructions Additional Instructions/Restrictions: Drink plenty of fluids. Take tylenol or ibuprofen for pain or fever. Take the medications as directed. Follow up with your regular doctor. GO TO THE ER FOR ANY WORSENING SYMPTOMS Use the topical medication as directed. I put refills on it just in case this comes back. Clinical Impressions Clinical Impression: Influenza A, Facial ringworm Instructions Patient Instructions: DI for Influenza -- Adult, DI for Ringworm, Oseltamivir Print Language Print Language: Estonian Discharge ED Provider: Shayan Prajapati [facility] General Stated complaint: cough Mode of Arrival: Ambulatory Source of Information: Patient Time Seen by Provider: 08/15/24 13:45 Description of Symptoms (Recalled from Triage Doc. by RN): COUGH, FEVER, EXP TO FLU, RING WORM ON FORHEAD HEENT Symptoms (Recalled from RN notes): No Resp Symptoms (Recalled from RN notes): Yes Skin Symptoms (Recalled from RN notes): No MS Symptoms (Recalled from RN notes): No Functional Status (Recalled from RN notes): WNL Related Data Previous Rx's ?Medication ?Instructions ?Recorded mgfztdddcwozbsn-ppzzqujptojmibo-AT 5 ml PO Q6H PRN Cough #240 mL 08/15/24 2 mg-30 mg-10 mg/5 mL oral syrup (Bromfed DM) clotrimazole 1 % topical cream 1 applic topical BID 4 weeks #15 08/15/24 grams ibuprofen 800 mg tablet (IBU) 800 mg PO Q8HP PRN Moderate Pain 08/15/24 #30 tabs oseltamivir 75 mg capsule (Tamiflu) 75 mg PO BID 5 days #10 caps 08/15/24 Allergies Allergy/AdvReac Type Severity Reaction Status Date / Time codeine (CODEINE) Allergy Mild ITCHING Verified 07/25/21 12:37 Penicillins (PENICILLINS) Allergy Unknown Verified 07/25/21 12:37 Worker's Comp Is this a Worker's Comp case?: No [facility] Disclaimer: The information contained in this section may have been updated after the patient was seen, as this information can be updated by other users. Medical History Asthma Surgical History History of appendectomy Social History Smoking Status: Current every day smoker tobacco type: cigarettes packs per day: 1 alcohol intake: never current occupational status: employed Travel in the last 8 weeks: None household members: family housing: house Have you lived/traveled outside [place] in past 30 days?: No Contact w/someone who lives/traveled outside [place] past 30 days?: No Exposure to someone with infectious disease in past 14 days?: Yes Do you have a fever (greater than 100.4 F or 38 C)?: No Have you tested positive for COVID-19: No Exposed to someone with COVID-19 in past 14 days?: No Do you have a sore throat?: No Do you have a cough?: Yes Do you have any weakness?: No Do you have any diarrhea?: No Are you experiencing any unusual bleeding?: No Do you have any muscle aches/pain?: No Do you have any abdominal pain?: No Are you experiencing loss of taste or smell?: No ROS Obtained: Yes All systems reviewed & no additional complaints except as documented Constitutional Constitutional: Reports chills and Reports fever(s) Eyes Eyes: Denies eye discharge ENT Ears, Nose, Mouth, and Throat: Reports as per HPI Cardiovascular Cardiovascular: Denies chest pain Respiratory Respiratory: Denies chest congestion and Reports cough Gastrointestinal Gastrointestingal: Reports nausea; Denies abdominal pain, constipation, cramping, diarrhea or vomiting Musculoskeletal Musculoskeletal: Denies arthralgias Integumentary/Breasts Skin/Breast: Denies rash Neurologic Neurologic: Denies paresthesias Physical Exam General General appearance: alert and in no apparent distress Head Head exam: atraumatic, normocephalic and normal inspection Eye Eye exam: Present normal appearance, PERRL and EOMI ENT ENT exam: Present mucous membranes moist and normal external ear exam Expanded ENT Exam TM/Canal exam: Bilateral TM: erythema and bulging Nose exam: Absent sinus tenderness Mouth exam: Present normal external inspection; Absent drooling Teeth exam: Present normal inspection Throat exam: Present tonsillar erythema, tonsillomegaly and tonsillar exudate Neck Neck exam: Present normal inspection, full ROM and trachea midline; Absent tenderness, meningismus or lymphadenopathy Chest Chest inspection: Present normal inspection and symmetric chest wall rise; Absent tenderness Respiratory Respiratory exam: Present normal lung sounds bilaterally; Absent respiratory distress, wheezes, stridor or accessory muscle use Cardiovascular Cardiovascular exam: Present regular rate and normal rhythm; Absent systolic murmur or diastolic murmur Abdominal Exam Abdominal exam: Present soft and normal bowel sounds; Absent distention, tenderness, guarding, rebound or rigidity Extremities Exam Extremities exam: Present normal inspection and normal capillary refill; Absent calf tenderness Back Exam Back exam: Present normal inspection and full ROM; Absent tenderness, CVA tenderness (R) or CVA tenderness (L) Neurological Exam Neurological exam: Present alert, oriented X3 and CN II-XII intact Psychiatric Psychiatric exam: Present normal affect and normal mood Skin Skin exam: Present warm, dry, intact and normal color Medical Decision Making Medical Records Medical records reviewed: No I reviewed the patient's medical records. Screening: Per USPSTF and CDC recommendations, given the prevalence of disease in our region, it is our hospital?s policy to screen for HIV and viral Hepatitis for all patients aged 18 and over and those with ongoing risk factors. Garth Inquiry Pt receiving controlled substance: No Vital Signs: 08/15/24 13:29 Temperature 98.2 F Temperature Source Oral Pulse Rate [Left Brachial] 94 H Respiratory Rate 18 Blood Pressure [Left Arm] 131/70 Blood Pressure Mean [Left Arm] 90 02 Sat by Pulse Oximetry 98 Lab Data Lab Results 08/15/24 13:35: Influenza Type A Ag Positive A, Influenza Type B Ag Negative
[2024-08-15 14:11] VITALS: BP 131/70; PULSE 94; RESP 18; TEMP 36.8
== END 2024-08-15 14:24 | disposition home or self-care (01) ==
PROVIDERS: Emergency Provider Nurse Practitioner Family; PCP Family Medicine
DX: J10.1 Influenza due to other identified influenza virus with other respiratory manifestations (principal); B35.8 Other dermatophytoses; R50.9 Fever, unspecified; R05.9 Cough, unspecified; Z20.828 Contact with and (suspected) exposure to other viral communicable diseases
CPT/HCPCS: 87804; 99212; G0381

== ENCOUNTER 2024-09-26 15:05 | Emergency (ER) | payer BC, SELFPAY ==
--- NOTE | 2024-09-26 15:59 | EXP.UTC ---
Discharge Plan Disposition Patient Disposition: Still a Patient Condition: Fair Referrals Follow up/Referrals: Jared Pérez MD [Primary Care Provider] - See instructions Clinical Impressions Clinical Impression: Left testicular pain Print Language Print Language: Yi Discharge ED Provider: Kathya Salinas [facility] [place] General Stated complaint: tender and swollen genitals Time Seen by Provider: 09/26/24 15:59 History of Present Illness Provider Complaint: He states that since this morning he has had left testicular pain. He states that pain has varied in intensity. He denies any injury. He denies any history of similar issues. He denies n/v. He denies back pain. Related Data Allergies Allergy/AdvReac Type Severity Reaction Status Date / Time codeine (CODEINE) Allergy Mild ITCHING Verified 07/25/21 12:37 Penicillins (PENICILLINS) Allergy Unknown Verified 07/25/21 12:37 [facility] Disclaimer: The information contained in this section may have been updated after the patient was seen, as this information can be updated by other users. Medical History Asthma Surgical History History of appendectomy Social History Smoking Status: Current every day smoker tobacco type: cigarettes packs per day: 1 alcohol intake: never current occupational status: employed Travel in the last 8 weeks: None household members: family housing: house Have you lived/traveled outside US in past 30 days?: No Contact w/someone who lives/traveled outside [place] past 30 days?: No Exposure to someone with infectious disease in past 14 days?: No Do you have a fever (greater than 100.4 F or 38 C)?: No Have you tested positive for COVID-19: No Exposed to someone with COVID-19 in past 14 days?: No Do you have a sore throat?: No Do you have a cough?: No Do you have any weakness?: No Do you have any diarrhea?: No Are you experiencing any unusual bleeding?: No Do you have any muscle aches/pain?: No Do you have any abdominal pain?: No Are you experiencing loss of taste or smell?: No ROS Obtained: Yes All systems reviewed & no additional complaints except as documented Constitutional Constitutional: Denies chills and Denies fever(s) Eyes Eyes: Denies eye discharge ENT Ears, Nose, Mouth, and Throat: Denies dizziness, Denies otalgia and Denies sore throat Cardiovascular Cardiovascular: Denies chest pain Respiratory Respiratory: Denies shortness of breath, Denies chest congestion, Denies cough, Denies stridor and Denies wheezing Gastrointestinal Gastrointestingal: Denies nausea or vomiting Genitourinary Male Genitourinary: Reports as per HPI, Denies difficulty urinating, Denies hematuria, Denies scrotal swelling, Denies testicular mass and Reports testicular pain Musculoskeletal Musculoskeletal: Reports system reviewed and no additional complaints, except as documented and Denies arthralgias Integumentary/Breasts Skin/Breast: Denies rash Neurologic Neurologic: Denies dizziness and Denies paresthesias Allergic/Immunologic Allergic/Immunologic: Denies wheezing Physical Exam General General appearance: alert and in no apparent distress Head Head exam: atraumatic, normocephalic and normal inspection Eye Eye exam: Present normal appearance, PERRL and EOMI ENT ENT exam: Present normal exam, normal oropharynx, mucous membranes moist, TM's normal bilaterally and normal external ear exam Neck Neck exam: Present normal inspection, full ROM and trachea midline; Absent meningismus or lymphadenopathy Chest Chest inspection: Present normal inspection and symmetric chest wall rise; Absent tenderness Respiratory Respiratory exam: Present normal lung sounds bilaterally; Absent respiratory distress Cardiovascular Cardiovascular exam: Present regular rate and normal rhythm; Absent JVD Abdominal Exam Abdominal exam: Present soft and normal bowel sounds; Absent distention, tenderness or guarding exam: Present testicular tenderness and normal testicular lie; Absent scrotal swelling Extremities Exam Extremities exam: Present normal inspection, full ROM and normal capillary refill; Absent calf tenderness Back Exam Back exam: Present normal inspection; Absent tenderness Neurological Exam Neurological exam: Present alert and oriented X3 Psychiatric Psychiatric exam: Present normal affect and normal mood Skin Skin exam: Present warm, dry, intact and normal color Lymphatic Lymphatic Findings: no adenopathy Medical Decision Making Medical Records Medical records reviewed: No I reviewed the patient's medical records. Screening: Per USPSTF and CDC recommendations, given the prevalence of disease in our region, it is our hospital?s policy to screen for HIV and viral Hepatitis for all patients aged 18 and over and those with ongoing risk factors. Garth Inquiry Pt receiving controlled substance: No Lab Data Lab results reviewed: Yes I reviewed the patient's lab results.
[2024-09-26 16:08] VITALS: BP 127/65; PULSE 86; RESP 18; TEMP 37; O2SAT 97; BMI 41.8
[2024-09-26 16:11] LABS: Apearance,Urine Clear (Clear); Bilirubin,Urine Negative (Negative); Blood, Urine Negative (Negative); Color,Urine Yellow (Yellow); Glucose,Urine (UA) Negative (Negative); Ketones,Urine Negative (Negative); PH,Urine 5.5 (5.0-8.5); Protein,Urine Negative (Negative); UTC Leukocyte Esterase,Urine Negative (Negative); UTC Nitrate,Urine Negative (Negative); Urobilinogen,Urine 0.2 EU/dl (0.2)
[2024-09-26 16:29] VITALS: BP 139/83; PULSE 75; RESP 18; TEMP 37; O2SAT 97; O2SAT 99; BMI 41.8
--- NOTE | 2024-09-26 16:34 | PC.NURSE ---
PT PLACED IN A GOWN FOR EXAM
--- NOTE | 2024-09-26 16:34 | ED_ITS ---
<Statement entered by Kathya Salinas DO - 09/26/24 22:19> I was consulted by the NORAM, and we discussed the complexity of the problems being addressed. I approved the treatment and management plan for this patient's care in the emergency department, thus performing a substantive portion of the medical decision making. Kathya Salinas DO Discharge Plan Disposition Patient Disposition: Still a Patient Condition: Fair Referrals Follow up/Referrals: Jared Pérez MD [Primary Care Provider] - See instructions Clinical Impressions Clinical Impression: Left testicular pain Print Language Print Language: Maldivian Discharge ED Provider: Kathya Salinas General Adult HPI General Chief complaint: Urogenital-Male Stated complaint: tender and swollen genitals Time Seen by Provider: 09/26/24 15:59 Mode of Arrival: Ambulatory Source of Information: Patient Description of Symptoms (Recalled from ER Triage Doc. by RN): LEFT TESTICLE PAIN WITH BRUISING History of Present Illness HPI narrative: Patient presents for evaluation of left testicular pain. Patient states he was in the shower this morning and he felt like he was having increasing achiness in his left testicle. Patient feels that the area around the left testicle is tender and he actually noticed a bruise on his scrotum. He denies any known trauma. He states that the pain is continued throughout the day today but he denies any chest pain shortness of breath fever chills hemoptysis hematochezia melena nausea vomiting diarrhea difficulty with urination bowel movement passing flatus. Related Data Allergies Allergy/AdvReac Type Severity Reaction Status Date / Time codeine (CODEINE) Allergy Mild ITCHING Verified 07/25/21 12:37 Penicillins (PENICILLINS) Allergy Unknown Verified 07/25/21 12:37 PFSH [facility] Disclaimer: The information contained in this section may have been updated after the patient was seen, as this information can be updated by other users. Medical History Asthma Surgical History History of appendectomy Social History Smoking Status: Current every day smoker tobacco type: cigarettes packs per day: 1 alcohol intake: never current occupational status: employed Travel in the last 8 weeks: None household members: family housing: house Have you lived/traveled outside [place] in past 30 days?: No Contact w/someone who lives/traveled outside US past 30 days?: No Exposure to someone with infectious disease in past 14 days?: No Do you have a fever (greater than 100.4 F or 38 C)?: No Have you tested positive for COVID-19: No Exposed to someone with COVID-19 in past 14 days?: No Do you have a sore throat?: No Do you have a cough?: No Do you have any weakness?: No Do you have any diarrhea?: No Are you experiencing any unusual bleeding?: No Do you have any muscle aches/pain?: No Do you have any abdominal pain?: No Are you experiencing loss of taste or smell?: No Other Medical History Have you received the Flu Vaccine for this season: No Have you received the Pneumonia Vaccine: No ROS Obtained: Yes Systems reviewed as appropriate & no additional complaints except as documented Physical Exam General General appearance: alert and in no apparent distress Respiratory Respiratory exam: Present normal lung sounds bilaterally Cardiovascular Cardiovascular exam: Present regular rate Neurological Exam Neurological exam: Present alert and oriented X3 Medical Decision Making Medical Records Medical records reviewed: Yes I reviewed the patient's medical records. Screening: Per USPSTF and CDC recommendations, given the prevalence of disease in our region, it is our hospital?s policy to screen for HIV and viral Hepatitis for all patients aged 18 and over and those with ongoing risk factors. Garth Inquiry Pt receiving controlled substance: No Vital Signs: 09/26/24 16:08 09/26/24 16:29 09/26/24 16:29 Temperature 98.6 F 98.6 F Temperature Source Oral Oral Pulse Rate [Left Radial] 86 75 Respiratory Rate 18 18 Blood Pressure [Left Arm] 127/65 139/83 Blood Pressure Mean [Left Arm] 85 101 Blood Pressure Source [Left Arm] Automatic Cuff Blood Pressure Position [Left Arm] Sitting 02 Sat by Pulse Oximetry 97 99 97 Oxygen Delivery Method Room Air Room Air Lab Data Lab results reviewed: Yes I reviewed the patient's lab results. Lab Results 09/26/24 16:01: Urine Color Yellow, Urine Appearance Clear, Urine pH 6.0, Ur Specific Traer >= 1.030, Urine Protein Negative, Urine Glucose (UA) Negative, Urine Ketones Negative, Urine Blood Negative, Urine Nitrate Negative, Urine Bilirubin Negative, Urine Urobilinogen 0.2, Ur Leukocyte Esterase Negative, Urine RBC None, Urine WBC Occasional, Ur Squamous Epith Cells None, Urine Bacteria None 09/26/24 16:10: Urine Color Yellow, Urine Appearance Clear, Urine pH 5.5, Ur Specific Traer 1.030, Urine Protein Negative, Urine Glucose (UA) Negative, Urine Ketones Negative, Urine Blood Negative, Urine Nitrate Negative, Urine Bilirubin Negative, Urine Urobilinogen 0.2, Ur Leukocyte Esterase Negative 09/26/24 16:44: WBC 7.2, RBC 5.05, Hgb 15.2, Hct 44.1, MCV 87.3, MCH 30.1, MCHC 34.5, RDW 12.3, Plt Count 220, MPV 10.1, Neut % (Auto) 56.2, Lymph % (Auto) 29.8, Rawlins % (Auto) 11.0 H, Eos % (Auto) 1.8, Baso % (Auto) 0.6, Neut # (Auto) 4.0, Lymph # (Auto) 2.1, Rawlins # (Auto) 0.8, Eos # (Auto) 0.1, Baso # (Auto) 0.0, Sodium 139, Potassium 3.9, Chloride 104, Carbon Dioxide 26, Anion Gap 12.9, BUN 14, Creatinine 0.70, Estimated Creat Clear 149, Estimated GFR 132, Est GFR ( Amer) 160, Glucose 103 H, Calcium 9.0 09/26/24 16:44 09/26/24 16:44 Orders (Tests/Meds): ED MEDICATIONS Discontinued Medications Generic Name Dose Route Start Last Admin Trade Name Anatolyq PRN Reason Stop Dose Admin Ketorolac Tromethamine 30 mg 09/26/24 16:41 09/26/24 16:59 Ketorolac 30mg/Ml Vial IM 09/26/24 16:42 30 mg ONCE ONE Administration ORDERS Category Date Time Status BMP [Basic Metabolic Panel] Stat Lab 09/26/24 16:44 Completed CBC w/Auto Diff [Complete Blood Count Auto Diff] Stat Lab 09/26/24 16:44 Completed HIV Combo Stat Lab 09/26/24 16:44 Received Hepatitis C Ab Qual. W/ RFX Stat Lab 09/26/24 16:44 Received Urinalysis and Microscopic Stat Lab 09/26/24 16:01 Completed US Testicular Stat Ultrasound 09/26/24 16:39 Completed Medical Decision Narrative: In summary patient is a 29-year-old male who presents to the emergency department for evaluation of left testicle pain. Patient is hemodynamically stable upon arrival, febrile. Physical exam is remarkable for tenderness not actually of the testicle but in the epididymis and spermatic cord. I do not feel a discrete cyst or mass. Patient does have a small superficial bruise in the midline of the scrotal sac approximately 3 mm in diameter without evidence of swelling induration.. Differential diagnosis includes varicocele versus epididymitis versus testicular torsion Cetera. Initial workup will be conducted with hematologic labs urinalysis GC chlamydia testicular ultrasound. Initial interventions include Toradol. Initial workup reviewed by me and his hematologic labs are nonactionable, urinalysis is bland and ultrasound did not show any evidence of testicular torsion or anatomical abnormality. Upon repeat evaluation patient reported improved discomfort after Toradol. Given this patient is appropriate for discharge with close follow-up with his PCP for any ongoing new or changing signs or symptoms or return to the ER as needed. Critical Care Critical Care Time Critical Care Time: No
--- NOTE | 2024-09-26 16:36 | PC.NURSE ---
JANUSZ THAKKAR AT BEDSIDE
--- NOTE | 2024-09-26 16:39 | US_ITS ---
PROCEDURE INFORMATION: Exam: US Scrotum Exam date and time: 09/26/2024 5:16 PM Age: 29 years old Clinical indication: Scrotum pain; Additional info: Left testicle pain rule out torsion TECHNIQUE: Imaging protocol: Real-time ultrasound of the scrotum and contents with color Doppler and image documentation. COMPARISON: CT LUMBAR SPINE WO CON 05/21/2020 3:08 AM FINDINGS: Right testicle: Right testicle homogeneous in echotexture measures 3.9 x 2.3 x 3.7 cm. Normal right testicular vascularity. Left testicle: Left testicle homogeneous in echotexture measures 4.0 x 2.0 x 3.0 cm. Normal left testicular vascularity. Epididymides: Simple right epididymal head cyst measuring 8 x 7 x 7 mm. Scrotum/soft tissues: Normal. No hydroceles. IMPRESSION: No acute abnormality. No testicular torsion.
--- NOTE | 2024-09-26 16:40 | PC.NURSE ---
RADIOLOGY NOTIFIED OF US
[2024-09-26] MEDS: KETOROLAC 30MG/ML VIAL 30 MG IM (16:59)
[2024-09-26 17:00] LABS: Microscopic, Urine URINE MICROSCOPIC (MICROSCOPIC)
[2024-09-26 17:01] VITALS: BP 115/66; PULSE 71; O2SAT 97
[2024-09-26 17:07] LABS: Basophils % 0.6 % (0.1-2.0); Eosinophils # 0.1 K/mm3 (0.0-0.4); Eosinophils % 1.8 % (0.1-12.0); Hematocrit 44.1 % (42.0-52.0); Hemoglobin 15.2 g/dL (14.1-18.0); Lymphocytes # 2.1 K/mm3 (0.7-4.5); Lymphocytes % 29.8 % (10-50); Mean Corpuscular HGB Conc 34.5 g/dL (31.8-35.4); Mean Corpuscular Hemoglobin 30.1 pg (27.0-31.2); Mean Corpuscular Volume 87.3 fl (80-94); Mean Platelet Volume 10.1 fl (7.4-10.4); Monocytes # 0.8 K/mm3 (0.1-1.0); Neutrophils % 56.2 % (37.0-80.0); Platelet Count 220 K/mm3 (142-424); Red Blood Count 5.05 M/mm3 (4.60-6.20); Red Cell Distribution Width 12.3 % (11.5-17.5); White Blood Count 7.2 K/mm3 (4.8-10.8)
[2024-09-26 17:09] LABS: Appearance,Urine CLEAR (Clear); Bilirubin,Urine Negative (Negative); Blood, Urine Negative (Negative); Color,Urine YELLOW (Yellow); Glucose,Urine (UA) Negative (Negative); Ketones,Urine Negative (Negative); Leukocyte Esterase,Urine Negative (Negative); Nitrate,Urine Negative (Negative); Protein,Urine Negative (Negative); Specific Gravity, Urine >= 1.030 (1.005-1.030); Urobilinogen,Urine 0.2 EU/dl (0.2)
[2024-09-26 17:10] LABS: Chloride 104 mmol/L (98-107); Potassium 3.9 mmoL/L (3.5-5.1); Sodium 139 mmol/L (136-145)
[2024-09-26 17:13] LABS: Anion Gap 12.9 mEq/L (5-15); Blood Urea Nitrogen 14 mg/dl (9-20); Carbon Dioxide 26 mmol/L (22.0-30.0); Creatinine Clearance Estimated 149 mL/min (50-200); Estimated Glomerular Filt Rate 132 ml/min (>60); GFR (African American) 160 ML/MIN (>60); Glucose 103 mg/dl (74-100)
[2024-09-26 17:29] LABS: WBC,Urine Occasional #/hpf (0-3)
--- NOTE | 2024-09-26 17:37 | PC.NURSE ---
ULTRASOUND AT BEDSIDE
--- NOTE | 2024-09-26 17:54 | PC.NURSE ---
PER US TECH NOTHING CRITICAL SHOWN ON US ER MADE AWARE
[2024-09-26 18:10] VITALS: BP 130/80; PULSE 78; RESP 18; TEMP 36.7; O2SAT 98
[2024-09-26 18:11] LABS: HIV Combo NEGATIVE (Negative)
--- NOTE | 2024-09-26 18:11 | PC.NURSE ---
ROUNDED ON THE PT. THE PT VOICES THAT HE DOES NOT NEED ANYTHING AT THIS TIME. CALL LIGHT IS WITHIN REACH OF THE PT.
[2024-09-26 18:19] LABS: Hepatitis C Ab Qual. W/ RFX NEGATIVE (Negative)
[2024-09-28 21:32] LABS: Neisseria gonorrhoeae, NAA Negative (Negative)
== END 2024-09-26 18:15 | disposition home or self-care (01) ==
LOC: UTC 15:11 → ER 16:26
PROVIDERS: Nurse Practitioner Family; Physician Assistant; Emergency Provider Emergency Medicine; PCP Family Medicine
DX: N50.812 Left testicular pain (principal); F17.210 Nicotine dependence, cigarettes, uncomplicated
CPT/HCPCS: 76870; 80048; 81001; 81003; 85025; 86803; 87389; 87491; 87591; 96372; 99283; J1885

== ENCOUNTER 2025-08-17 09:57 | Outpatient (CLI) | payer BC, SELFPAY ==
--- OUTSIDE RECORDS SUMMARY | 2025-08-17 10:00 | XMS_ITS | Clinical Summary ---
Author Organization [facility] Address [address] [place] [id number] Phone [email or web address] Providers Care Independent Distributor Name Role Phone Unavailable Primary Care Provider Unavailabl e Allergies Active Allergy Reactions Criticality Noted Date Comments Codeine Itching Low 07/25/2021 Penicillins 07/25/2021 Medications No known medications Active Problems No known active problems Social History Tobacco Use Types Packs/Day Years Used Date Smoking Tobacco: Every Day Cigarettes E-Cigarettes Smokeless Tobacco: Never Intimate Partner Violence Answer Date R ecorded Insults You Not on file 11/29/2020 Threatens You Not on file 11/29/2020 Screams at You Not on file 11/29/2020 Physically Hurt Not on file 11/29/2020 Intimate Partner Violence Score Not on file 11/29/2020 Depression Answer Date Recorded PHQ Total Score 0 07/21/2023 Stress Answer Date Recorded Stress in your Life Not on file 06/20/2024 Dealing with Stress 3 06/20/2024 Sex and Gender Information Value Date Recorded Sex Assigned at Not on file Legal Sex Male 12:17 PM CDT Gender Identity Not on file Sexual Orientation Not on file Last Filed Vital Signs Vital Sign Reading Time Taken Comments Blood Pressure 128/80 08/19/2023 2:28 PM EST Pulse 88 08/19/2023 2:28 PM EST Temperature 36.9 C (98.5 F) 08/19/2023 2:28 PM EST Respiratory Rate 15 08/19/2023 2:28 PM EST Oxygen Saturation 97% 08/19/2023 2:28 PM EST Inhaled Oxygen Concentration - - Weight 116 kg (255 lb) 06/08/2025 12:53 PM EDT Height 172.7 cm (5' 8 ) 06/08/2025 12:53 PM EDT Body Mass Index 38.77 06/08/2025 12:53 PM EDT Plan of Treatment Health Maintenance Due Date Last Done Comments Dental Cleaning/Exam 1994 HIV Screening 1994 Hepatitis C Screening 1994 Hepatitis B Immunization (2 of 3 - 3-dose series) 10/24/1995 09/26/1995 Polio Immunization (2 of 3 - 4-dose series) 10/24/1995 09/26/1995 HPV Immunization (1 - Male 3-dose series) 2009 Annual Preventive Exam 2012 Hep B Infection Screening - Triple Screen 2012 Pneumococcal Immunization (1 of 2 - PCV) 2013 Covid-19 Immunization (1 - season) 2025 Influenza Immunization (#1) 2025 Tetanus Diphtheria and Pertussis Immunization (3 - Td or Tdap) 01/20/2028 01/19/2018, 01/02/2007 HIB Immunization Aged Out No longer e ligible based on patient's age to complete this topic Hepatitis A Immunization Aged Out No longer eligible based on patient's age to complete this topic Varicella Immunization Aged Out No lo nger eligible based on patient's age to complete this topic Insurance OPT OUT NO COPAY NB
[2025-08-17 10:20] LABS: Hematocrit 44.1 % (42.0-52.0); Hemoglobin 15.4 g/dL (14.1-18.0); Immature Granulocytes % 0.2 %; Mean Corpuscular HGB Conc 34.9 g/dL (31.8-35.4); Mean Corpuscular Hemoglobin 30.6 pg (27.0-31.2); Mean Corpuscular Volume 87.7 fl (80-94); Nucleated Red Blood Cells % 0 %; Platelet Count 200 K/mm3 (142-424); Red Blood Count 5.03 M/mm3 (4.60-6.20); Red Cell Distribution Width-SD 39.2 fL; White Blood Count 6.5 K/mm3 (4.8-10.8)
[2025-08-17 10:38] LABS: Albumin Level 4.7 g/dl (3.5-5.0); Chloride 105 mmol/L (98-107); Hemoglobin A1C 5.1 % (4.0-6.0); Potassium 4.1 mmoL/L (3.5-5.1); Sodium 139 mmol/L (136-145)
[2025-08-17 10:40] LABS: Amylase 49 U/L (30-110)
[2025-08-17 10:41] LABS: Alanine Aminotransferase 33 U/L (12-78); Albumin/Globulin Ratio 2.4 (1.1-1.8); Alkaline Phosphatase 44 U/L (38-126); Anion Gap 11.1 mEq/L (5-15); Aspartate Amino Transferase 32 U/L (17-59); Bilirubin,Total 1.6 mg/dl (0.2-1.3); Blood Urea Nitrogen 12 mg/dl (9-20); Calcium 9.9 mg/dl (8.4-10.2); Carbon Dioxide 27 mmol/L (22.0-30.0); Creatinine,Serum 0.90 mg/dl (0.66-1.25); Estimated Glomerular Filt Rate 98 ml/min (>60); GFR (African American) 119 ML/MIN (>60); Globulin 2.0 g/dL (1.3-3.2); Glucose 115 mg/dl (74-100); Lipase 131 U/L (23-300); Total Protein,Serum 6.7 g/dl (6.3-8.2)
[2025-08-17 10:48] LABS: C-Reactive Protein 4.6 mg/L (0-4)
[2025-08-17 10:58] LABS: T4 (Thyroxine) 8.1 ug/dl (5.53-11.0)
[2025-08-17 10:59] LABS: Free T4 (Free Thyroxine) 0.95 ng/dl (0.78-2.19)
[2025-08-17 11:12] LABS: Thyroid Stimulating Hormone 1.15 uIU/mL (0.465-4.68)
[2025-08-18 08:12] LABS: Triiodothyronine (T3) Free 4.0 pg/mL (2.0-4.4)
== END 2025-08-17 23:59 | disposition home or self-care (01) ==
LOC: LAB 09:58
PROVIDERS: PCP Nurse Practitioner Family; Visit Provider Nurse Practitioner Family
DX: L75.0 Bromhidrosis (principal); R14.0 Abdominal distension (gaseous)
CPT/HCPCS: 36415; 80053; 82150; 83013; 83014; 83036; 83690; 84436; 84439; 84443; 84481; 85025; 86140